=== PATIENT | male | born 1955 | race African-American/Black ===

== ENCOUNTER → 2017-09-08 | Outpatient (CLI) | payer OTHER ==
--- NOTE | 2017-09-08 11:26 | RAD ---
Indication disability determination. Pain. AP and lateral views of the left knee were obtained. There is a total knee replacement. An acute bony finding is not seen. Evidence of complication associated with the knee replacement is not seen.
--- NOTE | 2017-09-08 11:30 | RAD ---
Indication disability determination. Pain. AP and frog leg views of the left hip were obtained. Bony mineralization appears normal. An acute finding is not seen. There is some very minimal sclerosis involving the acetabular roof indicative of mild degenerative change. Advanced joint space compartment narrowing is not seen. IMPRESSION: Slight degenerative changes involving the left hip
== END | disposition home or self-care (01) ==
LOC: RAD 09:14
PROVIDERS: ATTEND Neuromusculoskeletal Medicine, Sports Medicine
DX: M16.12 Unilateral primary osteoarthritis, left hip (principal); Z96.652 Presence of left artificial knee joint
CPT/HCPCS: 73502; 73560